=== PATIENT | female | born 1980 | race Native Hawaiian/Other Pacific Islander ===

== ENCOUNTER 2021-04-20 10:21 | Outpatient (CLI) | payer BC ==
[2021-04-20 10:45] LABS: POTASSIUM 3.1 mmol/L (3.6-5.2); SODIUM 138 mmol/L (136-145)
== END 2021-04-20 18:58 | disposition home or self-care (01) ==
LOC: LAB 10:21
PROVIDERS: ATTEND Nurse Practitioner Family
DX: Z20.822 Contact with and (suspected) exposure to COVID-19 (principal); R00.2 Palpitations
CPT/HCPCS: 36415; 80053; 82550; 82553; 82728; 84439; 84443; 84481; 84484; 85379; 86140

== ENCOUNTER 2021-12-14 10:18 | Outpatient (CLI) | payer BC ==
[2021-12-14 10:50] LABS: POTASSIUM 3.9 mmol/L (3.6-5.2)
== END 2021-12-14 18:53 | disposition home or self-care (01) ==
LOC: CT 10:18
PROVIDERS: ATTEND Nurse Practitioner Family
DX: R10.31 Right lower quadrant pain (principal)
CPT/HCPCS: 36415; 80053; 82150; 83690; Q9963

== ENCOUNTER 2021-12-15 14:45 | Outpatient (CLI) | payer BC | END 2021-12-15 19:22 | disposition home or self-care (01) | LOC: US 14:45 | PROVIDERS: ATTEND Nurse Practitioner Family | DX: N83.291 Other ovarian cyst, right side (principal) ==

== ENCOUNTER 2021-12-16 10:18 | Outpatient (CLI) | payer BC | END 2021-12-16 19:05 | disposition home or self-care (01) | LOC: US 10:18 | PROVIDERS: ATTEND Nurse Practitioner Family | DX: N83.291 Other ovarian cyst, right side (principal); K76.9 Liver disease, unspecified ==

== ENCOUNTER 2022-01-18 09:29 | Outpatient (CLI) | payer BC | END 2022-01-18 18:59 | disposition home or self-care (01) | LOC: RAD 09:29 | PROVIDERS: ATTEND Nurse Practitioner Family | DX: R05.3 Chronic cough (principal) ==

== ENCOUNTER 2022-04-28 10:27 | Outpatient (CLI) | payer BC | END 2022-04-28 19:03 | disposition home or self-care (01) | LOC: CT 10:27 | PROVIDERS: ATTEND Nurse Practitioner Family | DX: N20.2 Calculus of kidney with calculus of ureter (principal) ==

== ENCOUNTER 2022-04-29 09:32 | Outpatient (CLI) | payer BC ==
[2022-04-29 10:26] LABS: PLATELET COUNT 308 K/uL (152-353)
[2022-04-29 10:44] LABS: POTASSIUM 4.3 mmol/L (3.6-5.2)
== END 2022-04-29 19:17 | disposition home or self-care (01) ==
LOC: LABW 09:32
PROVIDERS: ATTEND Nurse Practitioner Family
DX: R10.11 Right upper quadrant pain (principal)
CPT/HCPCS: 36415; 80053; 82150; 85027; 85379

== ENCOUNTER 2022-05-25 07:50 | Outpatient (CLI) | payer BC | END 2022-05-25 19:00 | disposition home or self-care (01) | LOC: NM 07:50 | PROVIDERS: ATTEND Nurse Practitioner Primary Care | DX: K21.9 Gastro-esophageal reflux disease without esophagitis (principal) | CPT/HCPCS: A9537 ==